=== PATIENT | female | born 1955 | race Caucasian/White ===

== ENCOUNTER → 2016-08-17 | Outpatient (CLI) | payer BC ==
[~2016-08-17] MED LIST: AC325T PO; ASP81TEC PO; DICY20TA10 PO; FEXO180T PO; FEXO180T84 PO; HYDR-3816 PO; NORT10CA PO; OMEP-10 PO; PANT40TA PO; PNT40TEC PO; PRM25T PO; SCR1T1 PO; SIME180C48 PO; TRIA0.253 PO
--- OUTSIDE RECORDS SUMMARY | 2016-08-17 13:55 | XMS REPORT | Continuity of Care Document ---
Author Author [facility] Organization [facility] Address Unknown Phone Unavailable Care Team Providers Care Cork Molder Name Role Phone MIHAELA UGARTE MD PCP Insurance Providers Payer Name Policy Number Subscriber Name Relationship [facility] [id number] Ryan Galan Advance Directives Directive Response Recorded Date/Time Advance Directives Yes 02/11/15 8:26pm Health Care Power of Fire Extinguisher Technician No 02/11/15 8:26pm Organ Donor Yes 02/11/15 8:26pm Resuscitation Status Full Code 02/11/15 8:26pm Problems Medical Problems Problem Onset Date Status Myalgia Unknown Active Calf pain Unknown Active Medications Medication Dose Route Sig Days/Qty Instructions Order Date Discontinued Date Status Fexofenadine HCl 1 Tab PO DAILY 12/03/11 07/31/12 Discontinued Aspirin 81 Mg PO DAILY 12/03/11 Active Promethazine HCl 0.5 Tab PO Q2H PRN NAUSEA 12/03/11 07/28/12 Discontinued Simethicone 180 Mg PO NEEDED 12/03/11 07/29/12 Discontinued Omeprazole 20 Mg PO DAILY 12/03/11 07/29/12 Discontinued Nortriptyline Hcl 20 Mg PO BEDTIME 07/28/12 02/11/15 Discontinued Pantoprazole Sod 40 Mg PO DAILY 07/29/12 02/11/15 Discontinued Sucralfate 1 Gm PO GIVE EVERY 6 HR ON SCHEDULE 60 Qty 07/31/12 Discontinued Acetaminophen 650 Mg PO EVERY 4HRS PRN 07/31/12 Active Triazolam 1 Tab PO DAILY 21 Qty 02/11/15 Active Hydrocodone Bit/Acetaminophen 1 Tab PO DIRECTED 40 Qty 02/11/15 Active Pantoprazole Sodium 1 Tab PO DAILY 90 Qty 02/11/15 Active Fexofenadine Hcl 1 Tab PO DAILY 90 Qty 02/11/15 Active Social History Social History Problem Response Recorded Date/Time Alcohol Use Occasionally Uses 02/11/2015 8:26pm Recreational Drug Use No 02/11/2015 8:26pm Recent Foreign Travel No 07/28/2012 8:53pm Recent Infectious Disease Exposure No 02/11/2015 8:26pm Hospitalization with Isolation Denies 07/31/2012 10:36am Sexually Transmitted Disease No 02/11/2015 8:26pm Smoking Status Never a Smoker 02/11/2015 8:26pm Do you dip or chew tobacco? No 02/11/2015 8:26pm Query Response Start Date Stop Date Smoking Status Never a Smoker Hospital Discharge Instructions No hospital discharge instructions. Plan of Care No plan of care. Functional Status No functional status results. Allergies, Adverse Reactions, Alerts Allergen Type Severity Reaction Status Last Updated No Known Drug Allergies Active 07/30/08 Immunizations Name Given Type Date of Influenza Vaccine 07/29/12 Historical Hepatitis A No Historical Hepatitis B No Historical Tetanus Booster (TDap) Unknown Historical Vital Signs Acute Vital Signs Vital Response Date/Time Temperature (Fahrenheit) 98.3 degrees F (97.6 - 99.5) Temperature (Calculated Celsius) 36.81325 degrees C (36.4 - 37.5) Temperature Source Temporal Pulse Rate (adult) 110 bpm (60 - 90) Respiratory Rate 16 bpm (12 - 24) O2 Sat by Pulse Oximetry 97 % (88 - 100) Blood Pressure 130/91 mm Hg Blood Pressure Mean 104 mm Hg Pain Pain Intensity 6 Height (Feet) 5 feet Height (Inches) 3 inches Height (Calculated Centimeters) 160.579502 cm Weight (Pounds) 150 pounds Weight (Calculated Kilograms) 68.606241 kilograms Calculated BMI 26.57 Results Laboratory Results Test Name Result Units Flags Reference Collection Date/Time Result Date/ Time Comments White Blood Count 5.1 10^3/uL 4.3-11.0 02/11/2015 8:30pm 02/11/2015 8: 43pm Red Blood Count 4.41 10^6/uL 4.35-5.85 02/11/2015 8:30pm 02/11/2015 8: 43pm Hemoglobin 13.7 G/DL 11.5-16.0 02/11/2015 8:30pm 02/11/2015 8:43pm Hematocrit 40 % 35-52 02/11/2015 8:30pm 02/11/2015 8:43pm Mean Corpuscular Volume 90 FL 80-99 02/11/2015 8:30pm 02/11/2015 8: 43pm Mean Corpuscular Hemoglobin 31 PG 25-34 02/11/2015 8:30pm 02/11/2015 8: 43pm Mean Corpuscular Hemoglobin Concent 34 G/DL 32-36 02/11/2015 8:30pm 8:43pm Red Cell Distribution Width 12.3 % 10.0-14.5 02/11/2015 8:30pm 2014 8:43pm Platelet Count 189 10^3/uL 130-400 02/11/2015 8:30pm 02/11/2015 8:43pm Mean Platelet Volume 9.0 FL 7.4-10.4 02/11/2015 8:30pm 02/11/2015 8: 43pm Neutrophils (%) (Auto) 48 % 42-75 02/11/2015 8:30pm 02/11/2015 8:43pm Lymphocytes (%) (Auto) 37 % 12-44 02/11/2015 8:30pm 02/11/2015 8:43pm Monocytes (%) (Auto) 10 % 0-12 02/11/2015 8:30pm 02/11/2015 8:43pm Eosinophils (%) (Auto) 5 % 0-10 02/11/2015 8:30pm 02/11/2015 8:43pm Basophils (%) (Auto) 0 % 0-10 02/11/2015 8:30pm 02/11/2015 8:43pm Neutrophils # (Auto) 2.4 X 10^3 1.8-7.8 02/11/2015 8:30pm 02/11/2015 8: 43pm Lymphocytes # (Auto) 1.9 X 10^3 1.0-4.0 02/11/2015 8:30pm 02/11/2015 8: 43pm Monocytes # (Auto) 0.5 X 10^3 0.0-1.0 02/11/2015 8:30pm 02/11/2015 8: 43pm Eosinophils # (Auto) 0.2 10^3/uL 0.0-0.3 02/11/2015 8:30pm 02/11/2015 8 :43pm Basophils # (Auto) 0.0 10^3/uL 0.0-0.1 02/11/2015 8:30pm 02/11/2015 8: 43pm Erythrocyte Sedimentation Rate 15 MM/HR 0-30 02/11/2015 8:30pm 2014 9:17pm Sodium Level 139 MMOL/L 135-145 02/11/2015 8:30pm 02/11/2015 9:07pm Potassium Level 3.7 MMOL/L 3.6-5.0 02/11/2015 8:30pm 02/11/2015 9:07pm Chloride Level 105 MMOL/L 98-107 02/11/2015 8:30pm 02/11/2015 9:07pm Carbon Dioxide Level 26 MMOL/L 21-32 02/11/2015 8:30pm 02/11/2015 9: 07pm Anion Gap 8 MMOL/L 5-14 02/11/2015 8:30pm 02/11/2015 9:07pm Blood Urea Nitrogen 17 MG/DL 7-18 02/11/2015 8:30pm 02/11/2015 9:07pm Creatinine 1.08 MG/DL 0.60-1.30 02/11/2015 8:30pm 02/11/2015 9:07pm BUN/Creatinine Ratio 16 02/11/2015 8:30pm 02/11/2015 9:07pm Estimat Glomerular Filtration Rate 52 02/11/2015 8:30pm 02/11/2015 9:07pm GFR INTERPRETIVE DATA UNITS FOR ESTIMATED GFR (eGFR): mL/min/1.73 M2 REFERENCE RANGE FOR ESTIMATED GFR (eGFR) eGFR NORMAL eGFR >60 MODERATELY DECREASED eGFR 30-59 SEVERLY DECREASED eGFR 15-29 KIDNEY FAILURE <15 (OR DIALYSIS) Glucose Level 118 MG/DL H 70-105 02/11/2015 8:30pm 02/11/2015 9:07pm Calcium Level 9.6 MG/DL 8.5-10.1 02/11/2015 8:30pm 02/11/2015 9:07pm Total Bilirubin 0.5 MG/DL 0.1-1.0 02/11/2015 8:30pm 02/11/2015 9:07pm Alkaline Phosphatase 51 U/L 40-136 02/11/2015 8:30pm 02/11/2015 9:07pm Aspartate Amino Transf (AST/SGOT) 21 U/L 5-34 02/11/2015 8:30pm 2014 9:07pm Alanine Aminotransferase (ALT/SGPT) 19 U/L 0-55 02/11/2015 8:30pm 02/11 9:07pm Total Protein 7.0 G/DL 6.4-8.2 02/11/2015 8:30pm 02/11/2015 9:07pm Albumin 4.3 G/DL 3.2-4.5 02/11/2015 8:30pm 02/11/2015 9:07pm Procedures No known history of procedures. Encounters Encounter Location Date/Time Departed Emergency Room Via [facility] 02/11/15 8:19pm Recent Diagnosis
--- NOTE | 2016-08-17 14:54 | Diagnostic Imaging Report ---
PROCEDURE: MRI right joint upper extremity without contrast. TECHNIQUE: Multiplanar, multisequence non contrast-enhanced MRI of the right upper extremity was accomplished. INDICATION: Right shoulder pain. Limited range of motion. No known injury. History of right shoulder surgery one year ago. FINDINGS: There is evidence of prior shoulder surgery with fluid signal seen around the superior anterior screw through the humeral head suggestive of loosening. There is bone marrow edema noted adjacent to the tip of the screw. More inferiorly, there is another screw from an anterior approach with no significant abnormality. There is susceptibility artifact along the glenoid at its mid and upper aspects likely secondary to prior surgery. There is an undersurface partial tear seen at the infraspinatus tendon insertion site. More anteriorly in the rotator cuff, there is increased signal within the supraspinatus tendon, more prominent in the anterior fibers suggestive of tendinosis with an undersurface partial tear. There is no full-thickness retracted tear. No definite tear is seen in the subscapularis tendon. The long head of biceps tendon appears to be within its groove. It is not well delineated in its proximal aspect, however, on this exam. The acromioclavicular joint demonstrates fluid within the joint space and suggestion of osteotomy from its clavicular end. Correlate with surgical history. There are no osteophytes impinging on the rotator cuff identified. There is a small glenohumeral joint effusion. The muscle bulk and signal around the shoulder is satisfactory. There is minimal probably reactive fluid in the subacromial-subdeltoid bursa. The glenoid labrum is grossly unremarkable. IMPRESSION: 1. There is bone marrow edema and fluid signal around the upper humeral head screw suggestive of loosening. Correlate clinically and with right shoulder radiographs. 2. Tendinosis and partial tears involving the infraspinatus and supraspinatus tendons. No high-grade or full-thickness retracted tear seen. Dictated by: Dictated on workstation # [id number]
== END ==
LOC: RAD 13:51
PROVIDERS: ATTEND Nurse Practitioner Family
DX: M25.511 Pain in right shoulder (principal)
CPT/HCPCS: 73221

== ENCOUNTER → 2017-03-01 | Outpatient (CLI) | payer BC ==
--- NOTE | 2017-03-01 14:29 | Diagnostic Imaging Report ---
PROCEDURE: MRI right joint upper extremity without contrast. TECHNIQUE: Multiplanar, multisequence non contrast-enhanced MRI of the right upper extremity was accomplished. INDICATION: Shoulder pain. FINDINGS: Previous MRI right shoulder exam performed on 08/17/2016 noted two orthopedic fixation screws within the humeral head. There was some fluid about the superoanterior screw and the possibility of slight loosening of the screw was raised. There is no fluid about this anteroinferior screw. There also appeared to be an area of bone edema involving the humeral head. That finding has diminished but there is now a similar-sized area of bone edema in the greater tuberosity near the attachment of the rotator cuff. The previous study also noted minute areas of altered signal involving the attachment of the infraspinatus and supraspinatus muscles. The abnormal signal along the insertion of the infraspinatus muscle has increased in size since the prior study and now measures 2.5 x 3.6 mm as opposed to 1 x 1.5 cm on the prior study. The abnormal signal near the anterior insertion of the rotator cuff is essentially no different. The supraspinatus muscle itself is still not retracted or bunched. There is mild hypertrophy of the acromioclavicular joint and this does result in slight narrowing of the outlet for the supraspinatus muscle. The biceps tendon and the subscapularis tendon are intact. The labrum is thinned anteriorly and superiorly and may be torn on a degenerative basis. There is no evidence for a joint effusion. IMPRESSION: 1. The fluid about the anterosuperior orthopedic fixation screw within the humeral head seen on the previous study is again evident and no different. The bone edema in the midportion of the humerus seen previously has resolved. However there now appears to be an area of bone edema within the greater tuberosity near the attachment of the rotator cuff. The anteroinferior orthopedic fixation screw seems stable. 2. The minute tear of the attachment of the infraspinatus muscle seen previously is slightly larger on this exam. The small tear of the anterior insertion of the rotator cuff is essentially no different and there is still no retraction or bunching of the supraspinatus muscle. 3. There is mild narrowing of the outlet for the supraspinatus muscle due to acromioclavicular hypertrophy. 4. The labrum is thinned anteriorly and superiorly, most likely torn on a degenerative basis. Dictated by: Dictated on workstation # [id number]
== END ==
LOC: RAD 13:12
PROVIDERS: ATTEND Orthopaedic Surgery
DX: M75.111 Incomplete rotator cuff tear or rupture of right shoulder, not specified as traumatic (principal)
CPT/HCPCS: 73221

== ENCOUNTER → 2017-06-17 | Outpatient (CLI) | payer OTHER ==
[2017-06-17 10:46] LABS: BILIRUBIN,URINE NEGATIVE (NEGATIVE); KETONES,URINE NEGATIVE (NEGATIVE); LEUKOCYTE ESTERASE ,URINE NEGATIVE (NEGATIVE); NITRITE,URINE NEGATIVE (NEGATIVE); PH,URINE 7 (5-9); PROTEIN,URINE NEGATIVE (NEGATIVE); UROBILINOGEN,URINE NORMAL (NORMAL)
[2017-06-17 10:52] LABS: MEAN PLATELET VOLUME 9.2 FL (7.4-10.4); RED BLOOD COUNT 4.47 10^6/uL (4.35-5.85); RED CELL DISTRIBUTION WIDTH 12.8 % (10.0-14.5); WHITE BLOOD COUNT 4.5 10^3/uL (4.3-11.0)
[2017-06-17 10:53] LABS: SQUAMOUS EPITHELIAL CELL,UR RARE /HPF
[2017-06-17 11:00] LABS: ANION GAP 8 MMOL/L (5-14); BLOOD UREA NITROGEN 15 MG/DL (7-18); BUN/CREATININE RATIO 18; CALCIUM 9.8 MG/DL (8.5-10.1); CARBON DIOXIDE 30 MMOL/L (21-32); CHLORIDE 101 MMOL/L (98-107); CREATININE SERUM 0.83 MG/DL (0.60-1.30); GFR ESTIMATED > 60; GLUCOSE 93 MG/DL (70-105); POTASSIUM 4.1 MMOL/L (3.6-5.0); SODIUM 139 MMOL/L (135-145)
--- NOTE | 2017-06-17 20:32 | Diagnostic Imaging Report ---
PA view of the chest. INDICATION: Preoperative evaluation for shoulder surgery. FINDINGS: The lungs are clear. The heart size is normal. No effusion or pneumothorax The mediastinum and david appear unremarkable. Cervical fusion hardware is seen. IMPRESSION: No acute process. Dictated by: Dictated on workstation # [id number]
== END ==
LOC: CARD 10:27
DX: Z01.810 Encounter for preprocedural cardiovascular examination (principal); Z01.812 Encounter for preprocedural laboratory examination; M75.121 Complete rotator cuff tear or rupture of right shoulder, not specified as traumatic
CPT/HCPCS: 36415; 71010; 80048; 81000; 85027; 93005

== ENCOUNTER 2019-06-02 10:48 | Outpatient (RCR) | payer OTHER | END 2019-08-31 | disposition home or self-care (01) | LOC: LAB 10:48 | PROVIDERS: ATTEND Nurse Practitioner Family | DX: R19.5 Other fecal abnormalities (principal) | CPT/HCPCS: 87015; 87045; 87046; 87899 ==

== ENCOUNTER 2020-02-29 16:20 | Outpatient (RCR) | payer MEDICARE, OTHER | END 2020-02-29 16:30 | disposition home or self-care (01) | PROVIDERS: ATTEND Podiatrist Foot & Ankle Surgery | DX: M20.5X2 Other deformities of toe(s) (acquired), left foot (principal); Z98.890 Other specified postprocedural states ==

== ENCOUNTER → 2021-02-05 | Outpatient (CLI) | payer MEDICARE, OTHER ==
[~2021-02-05] MED LIST changes: +GADOBUTROL 10 MMOL/10 ML (GADAVIST) VIAL IV ONE
--- NOTE | 2021-02-05 16:22 | Diagnostic Imaging Report ---
PROCEDURE: MR imaging of the brain with and without contrast. TECHNIQUE: Multiplanar, multisequence MR imaging of the brain was performed with and without contrast. INDICATION: Acute on chronic head pain, migraines. COMPARISON: No priors. FINDINGS: There are no foci of abnormal diffusion restriction. There were no findings of an acute or subacute ischemic infarct. No focal or generalized cerebral edema. There is no suspicious white matter pathology. After contrast, no abnormal parenchymal or meningeal enhancement was seen. No abnormal extra-axial collection. No acute or chronic hemorrhage. The orbital contents and paranasal sinuses are unremarkable. There was no mastoid effusion. The brainstem, posterior fossa, and cerebellopontine angles are unremarkable. IMPRESSION: Unremarkable pre- and [id number]-aubosong brain MRI. Dictated by: Dictated on workstation # [id number]
== END ==
LOC: RAD 15:30
PROVIDERS: ATTEND Family Medicine
DX: G43.909 Migraine, unspecified, not intractable, without status migrainosus (principal)
CPT/HCPCS: 70553

== ENCOUNTER 2021-07-16 13:39 | Outpatient (RCR) | payer MEDICARE, OTHER ==
[~2021-07-16 13:39] MED LIST changes: -GADOBUTROL 10 MMOL/10 ML (GADAVIST) VIAL IV ONE
== END 2021-07-18 | disposition still patient (30) ==
PROVIDERS: ATTEND Orthopaedic Surgery Adult Reconstructive Orthopaedic Surgery
DX: M25.551 Pain in right hip (principal)

== ENCOUNTER 2021-08-14 14:22 | Outpatient (RCR) | payer MEDICARE, OTHER | END 2021-08-18 | disposition home or self-care (01) | PROVIDERS: ATTEND Orthopaedic Surgery Adult Reconstructive Orthopaedic Surgery | DX: M25.551 Pain in right hip (principal) ==

== ENCOUNTER 2021-09-12 11:15 | Outpatient (RCR) | payer MEDICARE, OTHER | END 2021-09-15 | disposition home or self-care (01) | PROVIDERS: ATTEND Orthopaedic Surgery Adult Reconstructive Orthopaedic Surgery | DX: M25.551 Pain in right hip (principal) ==

== ENCOUNTER 2021-10-09 14:52 | Outpatient (RCR) | payer MEDICARE, OTHER | END 2021-10-16 | disposition home or self-care (01) | PROVIDERS: ATTEND Orthopaedic Surgery Adult Reconstructive Orthopaedic Surgery | DX: M25.551 Pain in right hip (principal) ==

== ENCOUNTER 2021-10-22 13:38 | Outpatient (RCR) | payer MEDICARE, OTHER ==
[2021-10-22 15:01] LABS: BASOPHILS % (AUTO) 1 % (0-10); EOSINOPHILS # (AUTO) 0.2 10^3/uL (0.0-0.3); EOSINOPHILS % (AUTO) 3 % (0-10); HEMATOCRIT 38 % (35-52); HEMOGLOBIN 12.1 g/dL (11.5-16.0); LYMPHOCYTES # (AUTO) 1.5 10^3/uL (1.0-4.0); LYMPHOCYTES % (AUTO) 29 % (12-44); MEAN CORPUSCULAR HEMOGLOBIN 28 pg (25-34); MEAN CORPUSCULAR HGB CONC 32 g/dL (32-36); MEAN CORPUSCULAR VOLUME 89 fL (80-99); MEAN PLATELET VOLUME 9.7 fL (9.0-12.2); MONOCYTES # (AUTO) 0.5 10^3/uL (0.0-1.0); MONOCYTES % (AUTO) 8 % (0-12); NEUTROPHILS # (AUTO) 3.2 10^3/uL (1.8-7.8); NEUTROPHILS % (AUTO) 59 % (42-75); PLATELET COUNT 202 10^3/uL (130-400); WHITE BLOOD COUNT 5.4 10^3/uL (4.3-11.0)
[2021-10-22 15:21] LABS: ALBUMIN 4.3 GM/DL (3.2-4.5); BILIRUBIN,TOTAL 0.3 MG/DL (0.1-1.0); CALCIUM 9.2 MG/DL (8.5-10.1); CREATININE SERUM 0.82 MG/DL (0.60-1.30); POTASSIUM 3.9 MMOL/L (3.6-5.0); TOTAL PROTEIN 6.8 GM/DL (6.4-8.2)
== END 2021-11-15 | disposition home or self-care (01) ==
LOC: ONC 13:38
PROVIDERS: ATTEND Internal Medicine Hematology & Oncology
DX: D50.9 Iron deficiency anemia, unspecified (principal)
CPT/HCPCS: 80053; 82728; 83540; 83550; 85025; G0463; 36415; 99214

== ENCOUNTER 2021-11-07 13:20 | Outpatient (RCR) | payer MEDICARE, OTHER | END 2021-11-15 | disposition home or self-care (01) | PROVIDERS: ATTEND Orthopaedic Surgery Adult Reconstructive Orthopaedic Surgery | DX: M25.551 Pain in right hip (principal) ==

== ENCOUNTER 2021-12-09 13:11 | Outpatient (RCR) | payer MEDICARE, OTHER ==
[2021-12-02 14:53] LABS: BASOPHILS % (AUTO) 0 % (0-10); EOSINOPHILS # (AUTO) 0.2 10^3/uL (0.0-0.3); EOSINOPHILS % (AUTO) 3 % (0-10); HEMATOCRIT 39 % (35-52); HEMOGLOBIN 12.9 g/dL (11.5-16.0); LYMPHOCYTES # (AUTO) 1.6 10^3/uL (1.0-4.0); LYMPHOCYTES % (AUTO) 23 % (12-44); MEAN CORPUSCULAR HEMOGLOBIN 29 pg (25-34); MEAN CORPUSCULAR HGB CONC 33 g/dL (32-36); MEAN CORPUSCULAR VOLUME 89 fL (80-99); MONOCYTES # (AUTO) 0.5 10^3/uL (0.0-1.0); MONOCYTES % (AUTO) 7 % (0-12); NEUTROPHILS # (AUTO) 4.5 10^3/uL (1.8-7.8); NEUTROPHILS % (AUTO) 66 % (42-75); PLATELET COUNT 228 10^3/uL (130-400); WHITE BLOOD COUNT 6.8 10^3/uL (4.3-11.0)
[2021-12-02 15:14] LABS: ALBUMIN 4.1 GM/DL (3.2-4.5); BILIRUBIN,TOTAL 0.5 MG/DL (0.1-1.0); CALCIUM 9.2 MG/DL (8.5-10.1); CREATININE SERUM 0.99 MG/DL (0.60-1.30); POTASSIUM 3.8 MMOL/L (3.6-5.0); TOTAL PROTEIN 6.7 GM/DL (6.4-8.2)
== END 2021-12-16 | disposition home or self-care (01) ==
LOC: ONC 13:11
PROVIDERS: ATTEND Internal Medicine Hematology & Oncology
DX: D50.9 Iron deficiency anemia, unspecified (principal)
CPT/HCPCS: 36415; 80053; 82728; 83540; 83550; 85025; 99213

== ENCOUNTER 2022-01-13 14:37 | Outpatient (RCR) | payer MEDICARE, OTHER | END 2022-01-15 | disposition home or self-care (01) | PROVIDERS: ATTEND Orthopaedic Surgery | DX: S73.101D Unspecified sprain of right hip, subsequent encounter (principal) ==

== ENCOUNTER 2022-01-26 14:15 | Outpatient (RCR) | payer MEDICARE, OTHER | END 2022-02-15 | disposition home or self-care (01) | PROVIDERS: ATTEND Orthopaedic Surgery | DX: S73.101D Unspecified sprain of right hip, subsequent encounter (principal) ==

== ENCOUNTER 2022-03-10 16:59 | Emergency (ER) | payer MEDICARE, OTHER ==
[~2022-03-10] VITALS: Ht 160 cm; Wt 68.0 kg
[2022-03-10 17:05] VITALS: BP 128/60
[2022-03-10] MEDS ORDERED: diphenhydrAMINE 50 MG/ML INJ (BENADRYL) ONE (17:08)
[2022-03-10] MEDS ORDERED: FAMOTIDINE 20MG/2ML IV (PEPCID) ONE (17:08)
[2022-03-10] MEDS ORDERED: methylPREDNISolone 125 MG (Solu-MEDROL) VIAL ONE (17:08)
[2022-03-10 17:14] LABS: BASOPHILS % (AUTO) 0 % (0-10); EOSINOPHILS # (AUTO) 0.1 10^3/uL (0.0-0.3); EOSINOPHILS % (AUTO) 1 % (0-10); HEMATOCRIT 38 % (35-52); HEMOGLOBIN 13.3 g/dL (11.5-16.0); LYMPHOCYTES # (AUTO) 2.1 10^3/uL (1.0-4.0); LYMPHOCYTES % (AUTO) 39 % (12-44); MEAN CORPUSCULAR HEMOGLOBIN 32 pg (25-34); MEAN CORPUSCULAR HGB CONC 35 g/dL (32-36); MEAN CORPUSCULAR VOLUME 91 fL (80-99); MEAN PLATELET VOLUME 9.3 fL (9.0-12.2); MONOCYTES # (AUTO) 0.4 10^3/uL (0.0-1.0); MONOCYTES % (AUTO) 6 % (0-12); NEUTROPHILS # (AUTO) 2.9 10^3/uL (1.8-7.8); NEUTROPHILS % (AUTO) 53 % (42-75); PLATELET COUNT 206 10^3/uL (130-400); WHITE BLOOD COUNT 5.5 10^3/uL (4.3-11.0)
[2022-03-10] MEDS ORDERED: diphenhydrAMINE 50 MG/ML INJ (BENADRYL) IVP ONE (17:15)
[2022-03-10] MEDS ORDERED: EPINEPHrine INJECTION 1 MG/ML AMP IM ONE (17:15)
[2022-03-10] MEDS ORDERED: NS IV 1000 ML 1,000 ML IV SCH (17:15)
[2022-03-10] MEDS ORDERED: LORATADINE (CLARITIN) 10 MG TAB PO ONE (17:15)
[2022-03-10] MEDS ORDERED: FAMOTIDINE 20MG/2ML IV (PEPCID) IVP ONE (17:15)
[2022-03-10] MEDS ORDERED: methylPREDNISolone 125 MG (Solu-MEDROL) VIAL IVP ONE (17:15)
[2022-03-10 17:23] LABS: POTASSIUM 3.5 MMOL/L (3.6-5.0)
[2022-03-10 17:25] LABS: CALCIUM 9.3 MG/DL (8.5-10.1)
[2022-03-10 17:29] LABS: CREATININE SERUM 0.96 MG/DL (0.60-1.30)
--- NOTE | 2022-03-10 17:58 | ED Integumentary General ---
General Chief Complaint: Allergic Reaction Stated Complaint: THROAT SWELLING Nursing Triage Note: PT STATES SHE SAW DR. MORALES TODAY AT 1540 FOR ALLERGY SHOTS, PRESENTS HERE AT 1505 SOB, FLUSHED, WITH ANGIOEDEMA. Source: patient Exam Limitations: no limitations History of Present Illness Date Seen by Provider: Mar 10, 2022 Time Seen by Provider: 17:00 Initial Comments This is a 67 yo female who presented to ER via POV with allergic reaction. States that she is currently being treated at Dr. Morales's office with allergy injections, she had 3 injections around 1530 this afternoon. Has been receiving allergy injections for the past year with no prior reaction. States that she began having symptoms shortly after leaving office. She went home and grabbed her epinephrine pen and call Dr. Martin office. They recommended she present to the ER. upon arrival she is noted to have redness on her face, arms, abdomen, swelling of her eyes, thick tongue, she reports difficulty swallowing and shortness of breath. She has her epinephrine pen in hand but has not used it yet. Allergies and Home Medications Allergies Coded Allergies: No Known Drug Allergies (Verified , 07/30/08) Patient Home Medication List Home Medication List Reviewed: Yes Acetaminophen (Tylenol) 325 Mg Tablet, 650 MG PO Q4H PRN, (Reported) Entered as Reported by: CHRISTINE ASHER on 07/31/12 0957 Aspirin (Aspirin Ec 81 Mg) 81 Mg Tabec, 81 MG PO DAILY, (Reported) Entered as Reported by: MARCUS DHALIWAL on 12/03/11 1352 Fexofenadine Hcl (Nika Allergy) 180 Mg Tablet, 1 TAB PO DAILY, (Reported) Entered as Reported by: RYAN SHANKAR on 02/11/152025 Hydrocodone Bit/Acetaminophen (Hydrocodone-Apap 7.5-325 Tb) 1 Tab Tablet, 1 TAB PO UD, (Reported) Entered as Reported by: RYAN SHANKAR on 02/11/152025 Pantoprazole Sodium (Pantoprazole Sodium) 40 Mg Tablet., 1 TAB PO DAILY, (Reported) Entered as Reported by: RYAN SHANKAR on 02/11/152025 Triazolam (Triazolam) 0.25 Mg Tablet, 1 TAB PO DAILY, (Reported) Entered as Reported by: RYAN SHANKAR on 02/11/152025 Review of Systems Review of Systems Constitutional: see HPI EENTM: mouth swelling, throat swelling, other (tongue swelling. ) Respiratory: No cough; short of breath; No stridor, No wheezing Cardiovascular: no symptoms reported Gastrointestinal: abdominal pain Genitourinary: no symptoms reported Musculoskeletal: no symptoms reported Skin: rash Psychiatric/Neurological: No Symptoms Reported Endocrine: No Symptoms Reported Hematologic/Lymphatic: No Symptoms Reported Past Mavqfov-Ezybut-Fezyhg Hx Patient Social History Tobacco Use?: No Substance use?: No Alcohol Use?: Yes Alcohol type: Wine Alcohol Frequency: Rarely Immunizations Up To Date Tetanus Booster (TDap): Unknown Second COVID19 Vaccination Joel: 04/2021 Seasonal Allergies Seasonal Allergies: Yes Past Medical History Surgery/Hospitalization HX: RT HIP, RT SHOULDER X'S 3, NECK, BUNIONS ON BOTH FEET, HYSTERECTOMY, GALLBLADDER APPENDIX, HAY FEVER ALLERGIES-ALLERGY TO [id number], ASTHMA Abdominal, Appendectomy, Gallbladder, Hysterectomy, Orthopedic Reproductive Disorders: Yes (prolapsed uterus - hysterectomy 1987) SALES SUPPORT SPECIALIST History: Hysterectomy Sexually Transmitted Disease: No Kidney Stones, UTI-Chronic Gastroesophageal Reflux, Chronic Constipation, Hemorrhoids, Gall Bladder Disease, Irritable Bowel Tonsilitis Loss of Vision: Denies Hearing Impairment: Denies Skin Adverse Reaction/Blood Tranf: No Physical Exam Vital Signs Vital Signs - First Documented 03/10/22 17:05 Temp 36.7 Pulse 125 Resp 24 B/P (MAP) 128/60 (82) Pulse Ox 95 O2 Delivery Nasal Cannula O2 Flow Rate 2.00 Capillary Refill : Less Than 3 Seconds General Appearance: mild distress HEENT: pharynx normal, pharyngeal erythema, other (swelling of bilateral eyelids and tongue ) Neck: full range of motion, supple, normal inspection Cardiovascular: regular rate, rhythm, no murmur Respiratory: lungs clear, normal breath sounds, no respiratory distress, no accessory muscle use Gastrointestinal: normal bowel sounds, non tender, soft Extremities: normal range of motion, normal inspection Neurologic/Psychiatric: no motor/sensory deficits, alert, normal mood/affect, oriented x 3 Skin: rash Skin Problem Location: generalized, face Skin Problem Character: erythema Progress/Results/Core Measures Results/Orders Lab Results Laboratory Tests Test 03/10/22 17:06 Range/Units White Blood Count 5.5 4.3-11.0 10^3/uL Red Blood Count 4.13 3.80-5.11 10^6/uL Hemoglobin 13.3 11.5-16.0 g/dL Hematocrit 38 35-52 % Mean Corpuscular Volume 91 80-99 fL Mean Corpuscular Hemoglobin 32 25-34 pg Mean Corpuscular Hemoglobin Concent 35 32-36 g/dL Red Cell Distribution Width 13.2 10.0-14.5 % Platelet Count 206 130-400 10^3/uL Mean Platelet Volume 9.3 9.0-12.2 fL Immature Granulocyte % (Auto) 0 % Neutrophils (%) (Auto) 53 42-75 % Lymphocytes (%) (Auto) 39 12-44 % Monocytes (%) (Auto) 6 0-12 % Eosinophils (%) (Auto) 1 0-10 % Basophils (%) (Auto) 0 0-10 % Neutrophils # (Auto) 2.9 1.8-7.8 10^3/uL Lymphocytes # (Auto) 2.1 1.0-4.0 10^3/uL Monocytes # (Auto) 0.4 0.0-1.0 10^3/uL Eosinophils # (Auto) 0.1 0.0-0.3 10^3/uL Basophils # (Auto) 0.0 0.0-0.1 10^3/uL Immature Granulocyte # (Auto) 0.0 0.0-0.1 10^3/uL Sodium Level 140 135-145 MMOL/L Potassium Level 3.5 L 3.6-5.0 MMOL/L Chloride Level 106 98-107 MMOL/L Carbon Dioxide Level 20 L 21-32 MMOL/L Anion Gap 14 5-14 MMOL/L Blood Urea Nitrogen 13 7-18 MG/DL Creatinine 0.96 0.60-1.30 MG/DL Estimat Glomerular Filtration Rate 65 BUN/Creatinine Ratio 14 Glucose Level 150 H 70-105 MG/DL Calcium Level 9.3 8.5-10.1 MG/DL Medications Given in ED Current Medications Medications Dose Ordered Sig/Lorenzo Route Start Time Stop Time Status Last Admin Dose Admin Diphenhydramine HCl 50 mg ONCE ONCE IVP 03/10/22 17:15 03/10/22 17:16 DC 03/10/22 17:10 50 MG Epinephrine HCl 0.3 mg ONCE ONCE IM 03/10/22 17:15 03/10/22 17:16 DC 03/10/22 17:11 0.3 MG Famotidine 20 mg ONCE ONCE IVP 03/10/22 17:15 03/10/22 17:16 DC 03/10/22 17:11 20 MG Loratadine 10 mg ONCE ONCE PO 03/10/22 17:15 03/10/22 17:16 DC 03/10/22 17:25 10 MG Methylprednisolone Sodium Succinate 125 mg ONCE ONCE IVP 03/10/22 17:15 03/10/22 17:16 DC 03/10/22 17:11 125 MG Vital Signs/I&O 03/10/22 17:05 Temp 36.7 Pulse 125 Resp 24 B/P (MAP) 128/60 (82) Pulse Ox 95 O2 Delivery Nasal Cannula O2 Flow Rate 2.00 Blood Pressure Mean: 82 Progress Progress Note : Progress Note Upon arrival patient was displaying anaphylactic reaction, she was given epinephrine 0.3 mg IM, Benadryl 50 mg IV, Solu-Medrol 125 mg IV, Pepcid 20 mg IV. Within a few minutes of receiving epinephrine her redness began receding and swelling began decreasing. Patient reported immediate relief. She is currently being monitored in the ER for 4 hours to ensure no rebound. Vital signs stable. Departure Impression Primary Impression: Anaphylactic reaction Disposition: 01 HOME, SELF-CARE Condition: Stable Departure-Patient Inst. Referrals: MANUEL DINERO JR, MD (PCP) Primary Care Physician Patient Instructions: Anaphylaxis Add. Discharge Instructions: Plan: 1. Take Benadryl 25mg by mouth every four hours for the next few doses. Have your spouse monitor you every few hours through the evening. 2. If your symptoms worsen or return despite Benadryl take your Epi pen and call 911 or return to ER. 3. Discuss your reaction with your compilation clerk in the morning. 4. Return to ER for any new, concerning, or worsening symptoms. All discharge instructions reviewed with patient and/or family. Voiced understanding. JENN GUERRERO BAND MASTER Mar 10, 2022 17:58
[2022-03-10] MEDS ORDERED: diphenhydrAMINE 25 MG TAB (BENADRYL) PO ONE (21:45)
== END 2022-03-10 21:38 | disposition home or self-care (01) ==
LOC: EDUNIT# 16:59 → ER 17:01
DX: T78.2XXA Anaphylactic shock, unspecified, initial encounter (principal)
CPT/HCPCS: 36415; 80048; 85025; 96372; 96374; 96375

== ENCOUNTER → 2022-04-17 | Outpatient (RCR) | payer MEDICARE, OTHER | END | disposition home or self-care (01) | PROVIDERS: ATTEND Orthopaedic Surgery | DX: S73.101D Unspecified sprain of right hip, subsequent encounter (principal); X58.XXXD Exposure to other specified factors, subsequent encounter ==

== ENCOUNTER → 2022-05-18 | Outpatient (RCR) | payer MEDICARE, OTHER | END | disposition home or self-care (01) | PROVIDERS: ATTEND Orthopaedic Surgery | DX: S73.101D Unspecified sprain of right hip, subsequent encounter (principal); X58.XXXD Exposure to other specified factors, subsequent encounter ==

== ENCOUNTER 2022-06-08 13:00 | Outpatient (RCR) | payer MEDICARE, OTHER | END 2022-06-17 | disposition home or self-care (01) | PROVIDERS: ATTEND Orthopaedic Surgery | DX: S73.101D Unspecified sprain of right hip, subsequent encounter (principal); X58.XXXD Exposure to other specified factors, subsequent encounter; Z98.890 Other specified postprocedural states ==

== ENCOUNTER 2022-07-09 12:52 | Outpatient (RCR) | payer MEDICARE, OTHER | END 2022-07-18 | disposition home or self-care (01) | PROVIDERS: ATTEND Orthopaedic Surgery | DX: S73.101D Unspecified sprain of right hip, subsequent encounter (principal); X58.XXXD Exposure to other specified factors, subsequent encounter ==

== ENCOUNTER → 2022-08-18 | Outpatient (RCR) | payer MEDICARE, OTHER | END | disposition home or self-care (01) | PROVIDERS: ATTEND Orthopaedic Surgery | DX: S73.101D Unspecified sprain of right hip, subsequent encounter (principal); X58.XXXD Exposure to other specified factors, subsequent encounter ==

== ENCOUNTER 2022-11-10 09:17 | Outpatient (RCR) | payer MEDICARE, OTHER | END 2022-11-15 | disposition home or self-care (01) | PROVIDERS: ATTEND Orthopaedic Surgery | DX: M16.12 Unilateral primary osteoarthritis, left hip (principal); J45.909 Unspecified asthma, uncomplicated; Z96.642 Presence of left artificial hip joint ==

== ENCOUNTER 2022-12-02 12:55 | Outpatient (RCR) | payer MEDICARE, OTHER | END 2022-12-16 | disposition home or self-care (01) | PROVIDERS: ATTEND Orthopaedic Surgery | DX: M16.12 Unilateral primary osteoarthritis, left hip (principal); Z96.642 Presence of left artificial hip joint ==

== ENCOUNTER → 2022-12-03 | Outpatient (CLI) | payer MEDICARE, OTHER ==
--- NOTE | 2022-12-03 15:52 | Diagnostic Imaging Report ---
PROCEDURE: US Renal Bilateral. TECHNIQUE: Multiple real-time grayscale images were obtained over the kidneys in various projections bilaterally. INDICATION: Urinary frequency COMPARISON: None FINDINGS: Right kidney: Length (cm): 9.0 Hydronephrosis: None Cortex: Normal thickness and echogenicity Other: No shadowing stones or solid masses. Left kidney: Length (cm): 9.4 Hydronephrosis: None Cortex: Normal thickness and echogenicity Other: No shadowing stones or solid masses. Bladder: Prevoid volume (mL): 110 Postvoid volume is 19 mL Ureteral jets: Bilateral ureteral jets are seen Other: No filling defects or mass seen. IMPRESSION: 1. No acute renal abnormality. Dictated by: Dictated on workstation # [id number]
== END ==
LOC: RAD 11:54
PROVIDERS: ATTEND Nurse Practitioner Family
DX: R39.15 Urgency of urination (principal)
CPT/HCPCS: 76770

== ENCOUNTER 2023-01-07 14:21 | Outpatient (RCR) | payer MEDICARE, OTHER | END 2023-01-15 | disposition home or self-care (01) | PROVIDERS: ATTEND Orthopaedic Surgery | DX: M16.12 Unilateral primary osteoarthritis, left hip (principal); Z96.642 Presence of left artificial hip joint ==

== ENCOUNTER → 2023-01-21 | Outpatient (CLI) | payer MEDICARE, OTHER ==
--- NOTE | 2023-01-21 11:37 | Diagnostic Imaging Report ---
Indication: Routine screening. No prior mammograms are available for comparison. 2-D and 3-D bilateral screening mammography was performed with with CAD. The current study was also evaluated with a Computer Aided Detection (CAD) system. Both breasts are heterogeneously dense, limiting the sensitivity of mammography. No mass or malignant-appearing microcalcifications are identified. Axillae are unremarkable. IMPRESSION: BI-RADS Category 1 No mammographic features suspicious for malignancy are identified. ACR BI-RADS Category 1: Negative. Result letter will be mailed to the patient. Note: At least 10% of breast cancer is not imaged by mammography. Dictated by: Dictated on workstation # [id number]
== END ==
LOC: RAD 10:41
PROVIDERS: ATTEND Family Medicine
DX: Z12.31 Encounter for screening mammogram for malignant neoplasm of breast (principal)
CPT/HCPCS: 77063; 77067

== ENCOUNTER → 2023-01-27 | Outpatient (CLI) | payer MEDICARE, OTHER ==
[~2023-01-27] MED LIST changes: +GADOTERATE 0.5 MMOL/ML (CLARISCAN) 15 ML VIAL IV ONE
--- NOTE | 2023-01-27 16:02 | Diagnostic Imaging Report ---
EXAMINATION: Magnetic resonance imaging of the pelvis and left hip without and with intravenous contrast DATE: January 27, 2023. COMPARISON: None. INDICATION: 68-year-old female, left hip pain. TECHNIQUE: Magnetic Resonance Imaging sequences were performed of the pelvis and left hip without and with intravenous contrast. FINDINGS: New left total hip prosthesis with associated hardware related artifact. There is ttnc-[id number]-cpollnfe joint space loss of the right hip. There is a moderate-sized right hip joint effusion. The sacroiliac joints are unremarkable in appearance. There is mild to moderate disc height loss at L4-L5. There is otherwise limited assessment of the lumbar spine. There is no acute fracture, bone contusion, or evidence of osteonecrosis. The bilateral common hamstring tendons are intact. The left iliopsoas tendon is not particularly well evaluated. The right iliopsoas tendon is intact. There is no discretely identified tendon tear. There is no identified focal fluid collection. IMPRESSION: 1. Left total hip prosthesis with hardware related artifact. No identified periprosthetic fluid collection or otherwise identified fluid collection. 2. Mild to moderate arthritis right hip with moderate sized right hip joint effusion. 3. No acute fracture, bone contusion, or evidence of osteonecrosis. 4. No identified tendon tear. Dictated by: Dictated on workstation # [id number]
== END ==
LOC: RAD 14:00
PROVIDERS: ATTEND Family Medicine
DX: M16.12 Unilateral primary osteoarthritis, left hip (principal); M25.452 Effusion, left hip; Z96.642 Presence of left artificial hip joint
CPT/HCPCS: 73723

== ENCOUNTER 2023-02-04 12:53 | Outpatient (RCR) | payer MEDICARE, OTHER ==
[~2023-02-04 12:53] MED LIST changes: -GADOTERATE 0.5 MMOL/ML (CLARISCAN) 15 ML VIAL IV ONE
== END 2023-02-15 | disposition home or self-care (01) ==
PROVIDERS: ATTEND Orthopaedic Surgery
DX: Z47.1 Aftercare following joint replacement surgery (principal); Z96.642 Presence of left artificial hip joint

== ENCOUNTER 2023-02-23 14:23 | Outpatient (RCR) | payer MEDICARE, OTHER | END 2023-03-18 | disposition home or self-care (01) | PROVIDERS: ATTEND Orthopaedic Surgery | DX: Z47.1 Aftercare following joint replacement surgery (principal); J45.909 Unspecified asthma, uncomplicated; Z96.642 Presence of left artificial hip joint ==